=== PATIENT | female | born 1965 | race Caucasian/White ===

== ENCOUNTER 2016-05-28 23:48 | Observation (INO) | payer BC ==
--- NOTE | 2016-05-29 00:33 | ER Document Report ---
ED General - General Chief Complaint: Altered Mental Status Stated Complaint: CONFUSION Notes: Patient is a 51-year-old female presents with complaint of sudden onset of confusion. No focal weakness or numbness. Patient went to bed at 10 PM. She will woke up and was not acting appropriate. says she was staggering around the house. She is slurring her words. She's not making sense. She had a previous history of a TIA. She is not on blood thinning medications. She did take trazodone for sleep but she takes this every night does not have difficulty with it. She does not take any pain medications. The said she came off pain medications in August and has not had any since. He says there are no opiate medications in the house. She does not drink alcohol. She does not do drugs. No recent trauma. TRAVEL OUTSIDE OF THE [place] IN LAST 30 DAYS: No - Related Data Allergies/Adverse Reactions: amoxicillin [Amoxicillin] Allergy (Severe, Verified 06/19/14 16:17) Hives azithromycin [From Zithromax] Allergy (Severe, Verified 06/19/14 16:17) Anaphylaxis cephalexin monohydrate [From Keflex] Allergy (Severe, Verified 06/19/14 16:17) swelling clindamycin [Clindamycin] Allergy (Severe, Verified 06/19/14 16:17) Hives erythromycin base [Erythromycin Base] Allergy (Severe, Verified 06/19/14 16:17) Hives Penicillins Allergy (Severe, Verified 06/19/14 16:17) Hives Sulfa (Sulfonamide Antibiotics) Allergy (Severe, Verified 06/19/14 16:17) Hives vancomycin [Vancomycin] Allergy (Severe, Verified 06/19/14 16:17) Hives all mycins Allergy (Severe, Uncoded 06/19/14 16:17) Hives Past Medical History - Social History Smoking Status: Unknown if Ever Smoked Frequency of alcohol use: None Drug Abuse: None Family History: Reviewed & Not Pertinent Patient has suicidal ideation: No Patient has homicidal ideation: No - Past Medical History Cardiac Medical History: Reports: Hx Hypertension - on meds Denies: Hx Coronary Artery Disease, Hx Heart Attack Pulmonary Medical History: Denies: Hx Asthma, Hx Bronchitis, Hx COPD, Hx Pneumonia Neurological Medical History: Denies: Hx Seizures Endocrine Medical History: Denies: Hx Diabetes Mellitus Type 1, Hx Diabetes Mellitus Type 2, Hx Graves' Disease, Hx Hyperthyroidism, Hx Hypothyroidism Renal/ Medical History: Reports: Hx Kidney Stones. Denies: Hx Peritoneal Dialysis Musculoskeltal Medical History: Reports Hx Arthritis - Spinal Psychiatric Medical History: Reports: Hx Attention Deficit Hyperactivity Disorder Past Surgical History: Reports: Hx Cholecystectomy, Hx Genitourinary Surgery, Hx Hysterectomy, Hx Orthopedic Surgery - back x2 - Immunizations Immunizations up to date: Yes Hx Diphtheria, Pertussis, Tetanus Vaccination: Yes Review of Systems - Review of Systems Notes: My Normal Review Basic REVIEW OF SYSTEMS: CONSTITUTIONAL : Denies fever, chills, or sweats. Denies recent illness. EENT: Denies eye, ear, throat, or mouth pain or symptoms. Denies nasal or sinus congestion. CARDIOVASCULAR: Denies chest pain. RESPIRATORY: Denies cough, cold, or chest congestion. Denies shortness of breath, difficulty breathing, or wheezing. GASTROINTESTINAL: Denies abdominal pain. Denies nausea, vomiting, or diarrhea. Denies constipation. Last BM: : MUSCULOSKELETAL: Denies neck or back pain or joint pain or swelling. SKIN: Denies rash or skin lesions. HEMATOLOGIC : Denies easy bruising or bleeding. NEUROLOGICAL: Confusion. ALL OTHER SYSTEMS REVIEWED AND NEGATIVE. Physical Exam - Vital signs Vitals: Temp Pulse BP Pulse Ox 97.5 F 97 106/71 97 05/29/16 00:06 05/29/16 00:06 05/29/16 00:06 05/29/16 00:06 - Notes Notes: General Appearance: Well nourished, alert, patient is little bit sleepy appearing. She is arousable. When you talk to her she has slight slurring of her words. She's able answers most questions. She is able move all her extremities. She appears sedated.. Vitals: reviewed, See vital signs table. Head: no swelling or tenderness to the head Eyes: PERRL, EOMI, Conjuctiva clear Mouth: No decreasd moisture Neck: Supple, no neck tenderness, Lungs: No wheezing, No rales, No rhonci, No accessory muscle use, good air exchange bilaterally. Heart: Normal rate, Regular rythm, No murmur, no rub Abdomen: Normal BS, soft, No rigidity, No abdominal tenderness, No guarding, no rebound, no abdominal masses, no organomegaly Extremities: strength 5/5 in all extremities, good pulses in all extremities, no swelling or tenderness in the extremities, no edema. Skin: warm, dry, appropriate color, no rash Neuro: speech is sluggish, oriented x 2, somnolent affect, responds appropriately to questions. Cranial nerves II through XII are intact. Patient has no drift wouldn't hold her arms up against gravity. She has no drift in her legs when holding them up against gravity. She is good strength in all 4 extremities. Distal sensation intact. Course - Re-evaluation Re-evalutation: 05/29/16 00:40 Patient's is at bedside. She is within the window for TPA. The only symptom she has is confusion. She does not have any other strokelike symptoms. Her speech is more sluggish. I did talk to the at length. I did review the data for TPA with him. I informed him that approximately 33% of people will receive TPA would be improved to 6 months. Also informed him that 22% of people who do not receive the medication would be improved to 6 months. Also informed him that 6 to 7% of people will have some form of life- threatening bleeding if they received medication. Patient's is understanding of this. At this time does not want to go forth with TPA being that it is not clear-cut that she has a stroke and also the risk of bleeding. I do agree with him on this choice no think it's appropriate to not give TPA being at the exact cause of why she is confused is not clear and also the risk of bleeding with this medication. We'll continue the workup and continue to closely monitor the patient. 05/29/16 02:[address] scan is negative. Her laboratory evaluation is unremarkable. Her neurologic exam remains the same or she is sluggish with her speech and still somewhat appearing. She has no fevers. She has no leukocytosis. His nose signs of infection. Her drug screen is negative. This possibly this could be related to a stroke but still is not clear. I'm awaiting to speak with the hospitalist about possible admission and further workup which will probably include an MRI. 05/29/16 07:26 I did speak with the hospitalist who agrees to accept the patient for admission for further workup of her resolved altered mental status and slurred speech. The exact cause of this is really not clear. Patient is a history of TIA and this is definite possibility. She has no access to any type of drugs and denies doing drugs in the also denies for having asked drugs as well. She's actually Normal rep for going to bed and was with the at that time. Her drug screen is completely negative. She has no history of having altered mental status or any episodes similar to this in the past. At this time we will go forward with admitting the patient for further workup. Dictation of this chart was performed using voice recognition software; therefore, there may be some unintended grammatical errors. - Vital Signs Vital signs: Temp Pulse Resp BP Pulse Ox 97.5 F 90 19 95/72 L 95 05/29/16 00:06 05/29/16 00:34 05/29/16 05:01 05/29/16 05:01 05/29/16 05:01 - Laboratory Result Diagrams: 05/29/16 00:32 05/29/16 00:32 Laboratory results interpreted by me: 05/29/16 05/29/16 00:32 00:32 Sodium 145.5 H Chloride 112 H Salicylates < 1.0 L Acetaminophen < 10 L - EKG Interpretation by Me Additional EKG results interpreted by me: 05/29/16 00:26 EKG is reviewed and interpreted by me. EKG shows normal sinus rhythm with rate of 89 beats per minute. No ST segment elevation or depression. Small T-wave inversion in lead V3. DE interval, QRS duration, QTC levels are within normal range. Old EKG for comparison is from 06/15/2014. Discharge - Discharge Clinical Impression: Altered mental status Qualifiers: Altered mental status type: unspecified Qualified Code(s): R41.82 - Altered mental status, unspecified TIA (transient ischemic attack) Qualifiers: Transient cerebral ischemia type: unspecified Qualified Code(s): G45.9 - Transient cerebral ischemic attack, unspecified Condition: Stable Disposition: ADMITTED OBSERVATION Admitting Provider: Hospitalist Unit Admitted: Telemetry
[2016-05-29 00:42] LABS: ABSOLUTE EOSINOPHILS # (AUTO) 0.2 10^3/uL (0.0-0.6); ABSOLUTE LYMPHOCYTES (AUTO) 2.4 10^3/uL (0.5-4.7); ABSOLUTE MONOCYTES (AUTO) 0.5 10^3/uL (0.1-1.4); BASOPHILS % (AUTO) 0.5 % (0-2); EOSINOPHILS % (AUTO) 3.2 % (0-6); HEMATOCRIT 41.7 % (36.0-47.0); HEMOGLOBIN 13.9 g/dL (12.0-15.5); LYMPHOCYTES % (AUTO) 33.8 % (13-45); MEAN CORPUSCULAR HEMOGLOBIN 29.3 pg (27.0-33.4); MEAN CORPUSCULAR HGB CONC 33.4 g/dL (32.0-36.0); MEAN CORPUSCULAR VOLUME 88 fl (80-97); MONOCYTES % (AUTO) 7.1 % (3-13); RED BLOOD COUNT 4.75 10^6/uL (3.72-5.28); RED CELL DISTRIBUTION WIDTH 13.5 % (11.5-14.0); SEGMENTED NEUTROPHILS % (AUTO) 55.4 % (42-78); WHITE BLOOD COUNT 7.2 10^3/uL (4.0-10.5)
[2016-05-29 00:53] LABS: APPEARANCE,URINE CLEAR; BILIRUBIN,URINE NEGATIVE (NEGATIVE); GLUCOSE, URINE NEGATIVE (NEGATIVE); KETONES,URINE NEGATIVE (NEGATIVE); LEUKOCYTE ESTERASE,URINE NEGATIVE (NEGATIVE); NITRITE,URINE NEGATIVE (NEGATIVE); PROTEIN,URINE NEGATIVE (NEGATIVE); URINE SPECIFIC GRAVITY 1.014; UROBILINOGEN,URINE NEGATIVE mg/dL (<2.0)
[2016-05-29 00:53] LABS: PROTHROMBIN TIME 12.8 SEC (11.4-15.4)
[2016-05-29 00:54] LABS: PARTIAL THROMBOPLASTIN TIME 31.6 SEC (23.5-35.8)
[2016-05-29 01:01] LABS: ALANINE AMINOTRANSFERASE 34 U/L (9-52); ALBUMIN 4.5 g/dL (3.5-5.0); ALCOHOL < 10 mg/dL (NONE DETECTED); ALKALINE PHOSPHATASE 88 U/L (38-126); ANION GAP 12 (5-19); ASPARTATE AMINO TRANSFERASE 22 U/L (14-36); BILIRUBIN,TOTAL 0.5 mg/dL (0.2-1.3); BLOOD UREA NITROGEN 19 mg/dL (7-20); CALCIUM 9.6 mg/dL (8.4-10.2); CARBON DIOXIDE 22 mmol/L (22-30); CHLORIDE 112 mmol/L (98-107); CREATININE RESULT 0.82 mg/dL (0.52-1.25); GLUCOSE 103 mg/dL (75-110); POTASSIUM 3.8 mmol/L (3.6-5.0); SODIUM 145.5 mmol/L (137-145); TOTAL PROTEIN 7.2 g/dL (6.3-8.2)
[2016-05-29 01:16] LABS: URINE BARBITURATES SCREEN NEGATIVE; URINE METHADONE SCREEN NEGATIVE; URINE OPIATES LOW NEGATIVE; URINE PHENCYCLIDINE SCREEN NEGATIVE
[2016-05-29 01:35] LABS: VENOUS BLOOD BASE EXCESS -3.2 mmol/L; VENOUS BLOOD HCO3 21.4 mmol/L (20-32); VENOUS BLOOD PCO2 36.9 mmHg (35-63); VENOUS BLOOD PH 7.38 (7.30-7.42)
[2016-05-29] MEDS ORDERED: NORMAL SALINE 1000 ML 1,000 ML IV PRN (08:50)
--- NOTE | 2016-05-29 09:10 | PDOC H&P ---
History of Present Illness Admission Date/PCP: 05/29/16 07:44 PING SCHMIDT NP Patient complains of: Confusion. TIA like episode History of Present Illness: HERBERT ZUNIGA is a 51 year old female with complaint of sudden onset of confusion. No focal weakness or numbness. Patient went to bed at 10 PM. She will woke up and was not acting appropriate. says she was staggering around the house. She is slurring her words. She's not making sense. She had a previous history of a TIA. She is not on blood thinning medications. She did take trazodone for sleep but she takes this every night does not have difficulty with it. She does not take any pain medications. The said she came off pain medications in August and has not had any since. He says there are no opiate medications in the house. She does not drink alcohol. She does not do drugs. No recent trauma. Upon evaluation in the emergency room patient had a negative CAT scan Normal EKG and lab test She's had no significant neurological deficits Confusion improved with time, and she was oriented to time place and person when evaluated She was subsequently admitted under hospitalist service to telemetry unit for observation Past Medical History Cardiac Medical History: Reports: Hypertension - on meds Denies: Coronary Artery Disease, Myocardial Infarction Pulmonary Medical History: Denies: Asthma, Bronchitis, Chronic Obstructive Pulmonary Disease (COPD), Pneumonia Neurological Medical History: Denies: Seizures Endocrine Medical History: Denies: Diabetes Mellitus Type 1, Diabetes Mellitus Type 2, Hyperthyroidism, Hypothyroidism Musculoskeltal Medical History: Reports: Arthritis - Spinal Psychiatric Medical History: Reports: Attention Deficit Hyperactivity Disorder Hematology: Denies: Anemia Past Surgical History Past Surgical History: Reports: Cholecystectomy, Hysterectomy, Orthopedic Surgery - back x2 Social History Information Source: Patient Smoking Status: Former Smoker - He Frequency of Alcohol Use: None Hx Recreational Drug Use: No - Advance Directive Resuscitation Status: Full Code Surrogate healthcare decision maker:: Jeremiah Family History Family History: Reviewed & Not Pertinent Parental Family History Reviewed: Yes - Patient is adopted Children Family History Reviewed: Yes Sibling(s) Family History Reviewed.: Yes Medication/Allergy Allergies/Adverse Reactions: amoxicillin [Amoxicillin] Allergy (Severe, Verified 06/19/14 16:17) Hives azithromycin [From Zithromax] Allergy (Severe, Verified 06/19/14 16:17) Anaphylaxis cephalexin monohydrate [From Keflex] Allergy (Severe, Verified 06/19/14 16:17) swelling clindamycin [Clindamycin] Allergy (Severe, Verified 06/19/14 16:17) Hives erythromycin base [Erythromycin Base] Allergy (Severe, Verified 06/19/14 16:17) Hives Penicillins Allergy (Severe, Verified 06/19/14 16:17) Hives Sulfa (Sulfonamide Antibiotics) Allergy (Severe, Verified 06/19/14 16:17) Hives vancomycin [Vancomycin] Allergy (Severe, Verified 06/19/14 16:17) Hives all mycins Allergy (Severe, Uncoded 06/19/14 16:17) Hives Review of Systems Constitutional: ABSENT: chills, fever(s), headache(s), weight gain, weight loss Eyes: ABSENT: visual disturbances Ears: ABSENT: hearing changes Cardiovascular: ABSENT: chest pain, dyspnea on exertion, edema, orthropnea, palpitations Respiratory: ABSENT: cough, hemoptysis Gastrointestinal: PRESENT: abdominal pain, diarrhea. ABSENT: constipation, hematemesis, hematochezia, nausea, vomiting Genitourinary: ABSENT: dysuria, hematuria Musculoskeletal: ABSENT: joint swelling Integumentary: ABSENT: rash, wounds Neurological: PRESENT: confusion. ABSENT: abnormal gait, abnormal speech, dizziness, focal weakness, syncope Psychiatric: ABSENT: anxiety, depression, homidical ideation, suicidal ideation Endocrine: ABSENT: cold intolerance, heat intolerance, polydipsia, polyuria Hematologic/Lymphatic: ABSENT: easy bleeding, easy bruising Physical Exam Vital Signs: Temp Pulse Resp BP Pulse Ox 97.5 F 76 18 110/83 95 05/29/16 00:06 05/29/16 06:00 05/29/16 07:01 05/29/16 06:00 05/29/16 07:01 General appearance: PRESENT: no acute distress, well-developed, well-nourished Head exam: PRESENT: atraumatic, normocephalic Eye exam: PRESENT: conjunctiva pink, EOMI, PERRLA. ABSENT: scleral icterus Ear exam: PRESENT: normal external ear exam Mouth exam: PRESENT: moist, tongue midline Neck exam: ABSENT: carotid bruit, JVD, lymphadenopathy, thyromegaly Respiratory exam: PRESENT: clear to auscultation eva. ABSENT: rales, rhonchi, wheezes Cardiovascular exam: PRESENT: RRR. ABSENT: diastolic murmur, rubs, systolic murmur Pulses: PRESENT: normal dorsalis pedis pul Vascular exam: PRESENT: normal capillary refill GI/Abdominal exam: PRESENT: normal bowel sounds, soft. ABSENT: distended, guarding, mass, organolmegaly, rebound, tenderness Rectal exam: PRESENT: deferred Extremities exam: PRESENT: full ROM. ABSENT: calf tenderness, clubbing, pedal edema Neurological exam: PRESENT: alert, awake, oriented to person, oriented to place , oriented to time, oriented to situation, CN II-XII grossly intact. ABSENT: motor sensory deficit Psychiatric exam: PRESENT: appropriate affect, normal mood. ABSENT: homicidal ideation, suicidal ideation Skin exam: PRESENT: dry, intact, warm. ABSENT: cyanosis, rash Results Laboratory Results: Labs- All tests 24 hr 05/29/16 05/29/16 05/29/16 00:19 00:32 00:32 WBC 7.2 RBC 4.75 Hgb 13.9 Hct 41.7 MCV 88 MCH 29.3 MCHC 33.4 RDW 13.5 Plt Count 252 Seg Neutrophils % 55.4 Lymphocytes % 33.8 Monocytes % 7.1 Eosinophils % 3.2 Basophils % 0.5 Absolute Neutrophils 4.0 Absolute Lymphocytes 2.4 Absolute Monocytes 0.5 Absolute Eosinophils 0.2 Absolute Basophils 0.0 PT INR APTT VBG pH VBG pCO2 VBG HCO3 VBG Base Excess Sodium 145.5 H Potassium 3.8 Chloride 112 H Carbon Dioxide 22 Anion Gap 12 BUN 19 Creatinine 0.82 Est GFR ( Amer) > 60 Est GFR (Non-Af Amer) > 60 Glucose 103 POC Glucose 102 Calcium 9.6 Magnesium 2.0 Total Bilirubin 0.5 Direct Bilirubin 0.0 AST 22 ALT 34 Alkaline Phosphatase 88 Ammonia Total Protein 7.2 Albumin 4.5 Urine Color Urine Appearance Urine pH Ur Specific [place] Urine Protein Urine Glucose (UA) Urine Ketones Urine Blood Urine Nitrite Urine Bilirubin Urine Urobilinogen Ur Leukocyte Esterase Urine WBC (Auto) Urine RBC (Auto) Squamous Epi Cells Auto Urine Ascorbic Acid Salicylates Urine Opiates Screen Urine Methadone Screen Acetaminophen Ur Barbiturates Screen Ur Phencyclidine Scrn Ur Amphetamines Screen U Benzodiazepines Scrn Urine Cocaine Screen U Marijuana (THC) Screen Serum Alcohol < 10 05/29/16 05/29/16 05/29/16 00:32 00:32 00:40 WBC RBC Hgb Hct MCV MCH MCHC RDW Plt Count Seg Neutrophils % Lymphocytes % Monocytes % Eosinophils % Basophils % Absolute Neutrophils Absolute Lymphocytes Absolute Monocytes Absolute Eosinophils Absolute Basophils PT 12.8 INR 0.94 APTT 31.6 VBG pH VBG pCO2 VBG HCO3 VBG Base Excess Sodium Potassium Chloride Carbon Dioxide Anion Gap BUN Creatinine Est GFR ( Amer) Est GFR (Non-Af Amer) Glucose POC Glucose Calcium Magnesium Total Bilirubin Direct Bilirubin AST ALT Alkaline Phosphatase Ammonia Total Protein Albumin Urine Color YELLOW Urine Appearance CLEAR Urine pH 5.0 Ur Specific [place] 1.014 Urine Protein NEGATIVE Urine Glucose (UA) NEGATIVE Urine Ketones NEGATIVE Urine Blood NEGATIVE Urine Nitrite NEGATIVE Urine Bilirubin NEGATIVE Urine Urobilinogen NEGATIVE Ur Leukocyte Esterase NEGATIVE Urine WBC (Auto) 1 Urine RBC (Auto) 1 Squamous Epi Cells Auto <1 Urine Ascorbic Acid NEGATIVE Salicylates < 1.0 L Urine Opiates Screen Urine Methadone Screen Acetaminophen < 10 L Ur Barbiturates Screen Ur Phencyclidine Scrn Ur Amphetamines Screen U Benzodiazepines Scrn Urine Cocaine Screen U Marijuana (THC) Screen Serum Alcohol 05/29/16 05/29/16 05/29/16 00:40 01:21 01:21 WBC RBC Hgb Hct MCV MCH MCHC RDW Plt Count Seg Neutrophils % Lymphocytes % Monocytes % Eosinophils % Basophils % Absolute Neutrophils Absolute Lymphocytes Absolute Monocytes Absolute Eosinophils Absolute Basophils PT INR APTT VBG pH 7.38 VBG pCO2 36.9 VBG HCO3 21.4 VBG Base Excess -3.2 Sodium Potassium Chloride Carbon Dioxide Anion Gap BUN Creatinine Est GFR ( Amer) Est GFR (Non-Af Amer) Glucose POC Glucose Calcium Magnesium Total Bilirubin Direct Bilirubin AST ALT Alkaline Phosphatase Ammonia 12.1 Total Protein Albumin Urine Color Urine Appearance Urine pH Ur Specific [place] Urine Protein Urine Glucose (UA) Urine Ketones Urine Blood Urine Nitrite Urine Bilirubin Urine Urobilinogen Ur Leukocyte Esterase Urine WBC (Auto) Urine RBC (Auto) Squamous Epi Cells Auto Urine Ascorbic Acid Salicylates Urine Opiates Screen NEGATIVE Urine Methadone Screen NEGATIVE Acetaminophen Ur Barbiturates Screen NEGATIVE Ur Phencyclidine Scrn NEGATIVE Ur Amphetamines Screen UNCONFIRMED POSITIVE U Benzodiazepines Scrn NEGATIVE Urine Cocaine Screen NEGATIVE U Marijuana (THC) Screen NEGATIVE Serum Alcohol Impressions: Head CT 05/29/16 00:00 IMPRESSION: No acute findings. Chest X-Ray 05/29/16 00:39 IMPRESSION: NO ACUTE RADIOGRAPHIC FINDING IN THE CHEST. Assessment & Plan - Diagnosis (1) Encephalopathy acute Is this a current diagnosis for this admission?: YesPlan: Is improving Patient likely has metabolic encephalopathy ; she may have had a seizure She does not appear to have any signs of infection She had had intermittent abdominal pain and diarrhea Cause of the encephalopathy at this time is unknown (2) Abdominal pain Is this a current diagnosis for this admission?: YesPlan: We will schedule the patient for CT abdomen and pelvis in a.m. Her physical examination is benign she does not appear to have suffered any acute surgical issues (3) Diarrhea Is this a current diagnosis for this admission?: YesPlan: Order stools for occult for culture and C. difficile Patient may have irritable bowel syndrome (4) TIA (transient ischemic attack) Qualifiers: Transient cerebral ischemia type: unspecified Qualified Code(s): G45.9 - Transient cerebral ischemic attack, unspecified Is this a current diagnosis for this admission?: YesPlan: With transient confusion Workup in progress Patient was admitted to telemetry unit - Time Time Spent with patient: Admit to telemetry for observation Time Spent: 50 to 70 Minutes
[2016-05-29] MEDS: ASPIRIN 325 MG TABLET, ENT COATED PO SCH (10:50)
[2016-05-29] MEDS ORDERED: FAMOTIDINE INJ/PF 20 MG/2 ML SDV IV ONE (12:00)
[2016-05-29] MEDS ORDERED: ENOXAPARIN SODIUM INJ 40 MG/0.4 ML DISP.SYRIN SUBCUT ONE (12:30)
[2016-05-29] MEDS ORDERED: LORAZEPAM INJ 2 MG/1 ML VIAL IV ONE (14:30)
--- NOTE | 2016-05-29 17:16 | EKG REPORT ---
SEVERITY:- BORDERLINE ECG - SINUS RHYTHM PROBABLE LEFT ATRIAL ABNORMALITY BORDERLINE T ABNORMALITIES, ANTERIOR LEADS : Confirmed by: Nieves Anglin MD 29-May-2016 17:15:38
[2016-05-29] MEDS ORDERED: INFLUENZA ADLT QUAD (36MOS+) 2016-17 VAC 0.5 ML SYR IM PRN (19:46)
[2016-05-29] MEDS: FAMOTIDINE INJ/PF 20 MG/2 ML SDV IV SCH (21:10)
[2016-05-29] MEDS ORDERED: ATORVASTATIN CALCIUM 40 MG TABLET PO SCH (22:00)
--- NOTE | 2016-05-30 07:55 | EKG REPORT ---
SEVERITY:- NORMAL ECG - SINUS RHYTHM : Confirmed by: Nieves Anglin MD 30-May-2016 07:54:26
[2016-05-30] MEDS ORDERED: ENOXAPARIN SODIUM INJ 40 MG/0.4 ML DISP.SYRIN SUBCUT SCH (08:00)
[2016-05-30] MEDS: FAMOTIDINE INJ/PF 20 MG/2 ML SDV IV SCH (09:43)
[2016-05-30] MEDS: ASPIRIN 325 MG TABLET, ENT COATED PO SCH (09:43)
[2016-05-30 14:11] VITALS: BP 114/69
--- NOTE | 2016-06-01 10:26 | EEG PRO FEE REPORT ---
EEG INTERPRETATION PATIENT NAME: HERBERT ZUNIGA ROOM#: 316 ORDER#: [id number] DATE OF STUDY: 05/29/2016 : 1965 REFERRING MD: Jacqueline Wright MD DIAGNOSIS: Seizures, confusion, possible TIA MEDICATIONS: Not listed REPORT The background activity of tracing is 8-9 cycles per second. Well formed and reactive alpha best seen in the posterior electrodes with beta 18-22 cycles per second, intermittent, nonlocalized or sustained slower forms seen. Photic stimulation did not alter the tracing significantly. In the early stages of sleep, more generalized slowing is seen. IMPRESSION This EEG is within normal limits. INTERPRETING PHYSICIAN: DOROTHY JONES M.D. /: [id number] TT: 1005 ID: [id number] /: [id number] TD: [id number] JOB: [id number] cc:DOROTHY JONES M.D. >
--- NOTE | 2016-06-01 13:30 | PDOC DISCHARGE SUMMARY ---
General - Admit/Disc Date/PCP Admission Date/Primary Care Provider: 05/29/16 08:51 PING SCHMIDT NP Discharge Date: 05/30/16 - Discharge Diagnosis (1) Encephalopathy acute Is this a current diagnosis for this admission?: Yes (2) Abdominal pain Is this a current diagnosis for this admission?: Yes (3) Diarrhea Is this a current diagnosis for this admission?: Yes (4) TIA (transient ischemic attack) Is this a current diagnosis for this admission?: Yes - Additional Information Resuscitation Status: Full Code Discharge Diet: As Tolerated Discharge Activity: Activity As Tolerated Home Medications: Dextroamphetamine Sulfate [Dextrostat] 20 mg PO BID 05/29/16 Duloxetine HCl 30 mg PO BID 05/29/16 Trazodone HCl [Desyrel 50 mg Tablet] 50 mg PO QHS 05/29/16 Atenolol [Tenormin 50 mg Tablet] 50 mg PO DAILY #30 05/30/16 Topiramate [Topamax 100 mg Tablet] 200 mg PO BID #0 05/30/16 History of Present Illness Patient complains of: confusion History of Present Illness: HERBERT ZUNIGA is a 51 year old female with complaint of sudden onset of confusion. No focal weakness or numbness. Patient went to bed at 10 PM. She will woke up and was not acting appropriate. says she was staggering around the house. She is slurring her words. She's not making sense. She had a previous history of a TIA. She is not on blood thinning medications. She did take trazodone for sleep but she takes this every night does not have difficulty with it. She does not take any pain medications. The said she came off pain medications in August and has not had any since. He says there are no opiate medications in the house. She does not drink alcohol. She does not do drugs. No recent trauma. Upon evaluation in the emergency room patient had a negative CAT scan Normal EKG and lab test She's had no significant neurological deficits Confusion improved with time, and she was oriented to time place and person when evaluated She was subsequently admitted under hospitalist service to telemetry unit for observation Hospital Course Hospital Course: Patient was admitted with TIA like symptoms Confusion resolved in less than 24 hours Extensive workup including Brain MRI, EEG , carotid ultrasound were normal Etiology of transient encephalopathy unclear ? could it be related to medications prescribed We advised patient to decrease Topamax to 200 mg twice a day and follow up with primary care physician Physical Exam Vital Signs: Temp Pulse Resp BP Pulse Ox 98.3 F 76 16 114/69 99 05/30/16 14:07 05/30/16 14:07 05/30/16 14:07 05/30/16 14:07 05/30/16 14:07 Intake & Output 05/31/16 06/01/16 06/02/16 00:59 00:59 00:59 Intake Total 1176 Balance 1176 Weight 85.8 kg General appearance: PRESENT: no acute distress, well-developed, well-nourished Head exam: PRESENT: atraumatic, normocephalic Eye exam: PRESENT: conjunctiva pink, EOMI, PERRLA. ABSENT: scleral icterus Ear exam: PRESENT: normal external ear exam Mouth exam: PRESENT: moist, tongue midline Neck exam: ABSENT: carotid bruit, JVD, lymphadenopathy, thyromegaly Respiratory exam: PRESENT: clear to auscultation eva. ABSENT: rales, rhonchi, wheezes Cardiovascular exam: PRESENT: RRR. ABSENT: diastolic murmur, rubs, systolic murmur Pulses: PRESENT: normal dorsalis pedis pul Vascular exam: PRESENT: normal capillary refill GI/Abdominal exam: PRESENT: normal bowel sounds, soft. ABSENT: distended, guarding, mass, organolmegaly, rebound, tenderness Rectal exam: PRESENT: deferred Extremities exam: PRESENT: full ROM. ABSENT: calf tenderness, clubbing, pedal edema Neurological exam: PRESENT: alert, awake, oriented to person, oriented to place , oriented to time, oriented to situation, CN II-XII grossly intact. ABSENT: motor sensory deficit Psychiatric exam: PRESENT: appropriate affect, normal mood. ABSENT: homicidal ideation, suicidal ideation Skin exam: PRESENT: dry, intact, warm. ABSENT: cyanosis, rash Results Laboratory Results: 05/29/16 05/29/16 05/29/16 09:19 16:20 22:25 Troponin I < 0.012 < 0.012 < 0.012 05/29/16 00:32 05/29/16 00:32 MCV 88 fl (80-97) 05/29/16 00:32 MCH 29.3 pg (27.0-33.4) 05/29/16 00:32 MCHC 33.4 g/dL (32.0-36.0) 05/29/16 00:32 RDW 13.5 % (11.5-14.0) 05/29/16 00:32 Seg Neutrophils % 55.4 % (42-78) 05/29/16 00:32 Lymphocytes % 33.8 % (13-45) 05/29/16 00:32 Monocytes % 7.1 % (3-13) 05/29/16 00:32 Eosinophils % 3.2 % (0-6) 05/29/16 00:32 Basophils % 0.5 % (0-2) 05/29/16 00:32 Absolute Neutrophils 4.0 10^3/uL (1.7-8.2) 05/29/16 00:32 Absolute Lymphocytes 2.4 10^3/uL (0.5-4.7) 05/29/16 00:32 Absolute Monocytes 0.5 10^3/uL (0.1-1.4) 05/29/16 00:32 Absolute Eosinophils 0.2 10^3/uL (0.0-0.6) 05/29/16 00:32 Absolute Basophils 0.0 10^3/uL (0.0-0.2) 05/29/16 00:32 VBG pH 7.38 (7.30-7.42) 05/29/16 01:21 VBG pCO2 36.9 mmHg (35-63) 05/29/16 01:21 VBG HCO3 21.4 mmol/L (20-32) 05/29/16 01:21 VBG Base Excess -3.2 mmol/L 05/29/16 01:21 Chloride 112 mmol/L (98-107) H 05/29/16 00:32 Carbon Dioxide 22 mmol/L (22-30) 05/29/16 00:32 Anion Gap 12 (5-19) 05/29/16 00:32 Est GFR ( Amer) > 60 (>60) 05/29/16 00:32 Est GFR (Non-Af Amer) > 60 (>60) 05/29/16 00:32 Glucose 103 mg/dL (75-110) 05/29/16 00:32 Calcium 9.6 mg/dL (8.4-10.2) 05/29/16 00:32 Magnesium 2.0 mg/dL (1.6-2.3) 05/29/16 00:32 Total Bilirubin 0.5 mg/dL (0.2-1.3) 05/29/16 00:32 AST 22 U/L (14-36) 05/29/16 00:32 ALT 34 U/L (9-52) 05/29/16 00:32 Alkaline Phosphatase 88 U/L (38-126) 05/29/16 00:32 Ammonia 12.1 umol/L (9-33) 05/29/16 01:21 Total Protein 7.2 g/dL (6.3-8.2) 05/29/16 00:32 Albumin 4.5 g/dL (3.5-5.0) 05/29/16 00:32 Urine Color YELLOW 05/29/16 00:40 Urine Appearance CLEAR 05/29/16 00:40 Urine pH 5.0 (5.0-9.0) 05/29/16 00:40 Ur Specific [place] 1.014 05/29/16 00:40 Urine Protein NEGATIVE mg/dL (NEGATIVE) 05/29/16 00:40 Urine Glucose (UA) NEGATIVE mg/dL (NEGATIVE) 05/29/16 00:40 Urine Ketones NEGATIVE mg/dL (NEGATIVE) 05/29/16 00:40 Urine Blood NEGATIVE (NEGATIVE) 05/29/16 00:40 Urine Nitrite NEGATIVE (NEGATIVE) 05/29/16 00:40 Ur Leukocyte Esterase NEGATIVE (NEGATIVE) 05/29/16 00:40 Urine WBC (Auto) 1 /HPF 05/29/16 00:40 Urine RBC (Auto) 1 /HPF 05/29/16 00:40 05/29/16 05/29/16 05/29/16 09:19 16:20 22:25 Troponin I < 0.012 < 0.012 < 0.012 EKG Comments: SINUS RHYTHM Impressions: Head CT 05/29/16 00:00 IMPRESSION: No acute findings. Chest X-Ray 05/29/16 00:39 IMPRESSION: NO ACUTE RADIOGRAPHIC FINDING IN THE CHEST. Head MRI 05/29/16 08:53 IMPRESSION: Normal brain. Carotid Doppler Study 05/29/16 08:54 IMPRESSION: NO HEMODYNAMICALLY SIGNIFICANT STENOSIS. Plan Discharge Plan: discharged home at time of discharge she is alert awake no residual confusion
== END 2016-05-30 14:42 | disposition home or self-care (01) ==
LOC: ER 23:48 → EH 05-29 07:44 → UNDOADMOB 05-29 07:44 → EH 05-29 08:51 → 3W 05-29 11:03
PROVIDERS: ADMIT Emergency Medicine; ATTEND Emergency Medicine
DX: G93.40 Encephalopathy, unspecified (principal); R10.9 Unspecified abdominal pain; R19.7 Diarrhea, unspecified; G45.9 Transient cerebral ischemic attack, unspecified; I10 Essential (primary) hypertension; F90.9 Attention-deficit hyperactivity disorder, unspecified type; Z87.891 Personal history of nicotine dependence; R41.82 Altered mental status, unspecified
CPT/HCPCS: 95819; 93005 ×2; 99285; 36415; 82962; 80307 ×4; 82140; 83735; 85025; 85610; 85730; 80053; 81001; 84484; 82803; 93306; 93880; 70551; 71010; 70450; 90686; 93010 ×2; 97162; 97166; G0378 ×2; J1650 ×2; J2060; J3490 ×2; J7030; S0028 ×2

== ENCOUNTER → 2018-04-30 | Outpatient (CLI) | payer BC ==
--- NOTE | 2018-04-30 11:53 | WOMENS IMAGING REPORT ---
EXAM DESCRIPTION: 3D SCREENING MAMMO BILAT COMPLETED DATE/TIME: 04/30/2018 11:30 am REASON FOR STUDY: Z12.31 SCREENING MAMMO Z12.31 ENCNTR SCREEN MAMMOGRAM FOR MALIGNANT NEOPLASM OF B RE COMPARISON: 2014 TECHNIQUE: Standard craniocaudal and mediolateral oblique views of each breast recorded using digita l acquisition and breast tomosynthesis. LIMITATIONS: None. FINDINGS: No masses, calcifications or architectural distortion. No areas of suspicion. Read with the assistance of CAD. .[facility] - R2 [employer] Version 1.3 .[facility] Imaging - R2 Cenova Version 2.1 .[facility] Imaging - R2 Cenova Version 2.4 .[facility] - R2 Cenova Version 2.4 .[facility] - R2 Extractor Plant Operator Version 9.2 IMPRESSION: NORMAL MAMMOGRAM. BIRADS 1. BREAST DENSITY: b. There are scattered areas of fibroglandular density. BIRAD: 1 NEGATIVE RECOMMENDATION: ROUTINE SCREENING COMMENT: The patient has been notified of the results by letter per MQSA requirements. Additional no tification policies are in place for contacting patient with suspicious or incomplete findings. Quality ID #[id number]: The [employer] recommends an annual screening mammogram for women aged 40 years or over. This facility utilizes a reminder system to ensure that all patients receive reminder letters, and/or direct phone calls for appointments. This includes reminders for routine scr eening mammograms, diagnostic mammograms, or other Breast Imaging Interventions when appropriate. Th is patient will be placed in the appropriate reminder system. The [employer] (ACR) has developed recommendations for screening MRI of the breast s in certain patient populations, to be used in conjunction with mammography. Breast MRI surveillanc e may be appropriate for women with more than 20% lifetime risk of developing breast cancer as deter mined by genetic testing, significant family history of the disease, or history of mantle radiation f or Hodgkins Disease. ACR Practice Guidelines 2008. DBT Technology DBT is a type of tomographic mammography. With conventional mammography, overlapping breast tissue ma y make lesions difficult to detect, even with good compression. DBT uses an x-ray tube that rotates a round the breast, taking images at different angles. These images are then combined to create thin sl ices of the breast that the radiologist can view as a 3D reconstruction. The [employer] unit can perform full-field digital mammograms (2D imaging); or DBT (3D imaging); or both, in a combination mode that quickly performs both the mammogram and the tomosynthesis scan while the breast is still compressed. PQRS 6045F: Fluoroscopic imaging is not utilized for breast tomosynthesis. TECHNICAL DOCUMENTATION: FINDING NUMBER: (1) ASSESSMENT: (1) JOB ID: [id number] [employer]- All Rights Reserved Reading location - IP/workstation name: [email or web address]
== END ==
LOC: WI 11:26
PROVIDERS: ATTEND Specialist
DX: Z12.31 Encounter for screening mammogram for malignant neoplasm of breast (principal)
CPT/HCPCS: 77063; 77067

== ENCOUNTER → 2018-04-30 | Outpatient (CLI) | payer BC ==
[2018-04-30 11:47] LABS: ABSOLUTE BASOPHILS # (AUTO) 0.1 10^3/uL (0.0-0.2); ABSOLUTE EOSINOPHILS # (AUTO) 0.2 10^3/uL (0.0-0.6); ABSOLUTE LYMPHOCYTES (AUTO) 1.9 10^3/uL (0.5-4.7); ABSOLUTE MONOCYTES (AUTO) 0.3 10^3/uL (0.1-1.4); ABSOLUTE NEUT (AUTO) 3.7 10^3/uL (1.7-8.2); BASOPHILS % (AUTO) 0.8 % (0-2); EOSINOPHILS % (AUTO) 3.3 % (0-6); HEMATOCRIT 40.9 % (36.0-47.0); LYMPHOCYTES % (AUTO) 30.4 % (13-45); MEAN CORPUSCULAR HEMOGLOBIN 29.9 pg (27.0-33.4); MEAN CORPUSCULAR HGB CONC 34.2 g/dL (32.0-36.0); MEAN CORPUSCULAR VOLUME 87 fl (80-97); MONOCYTES % (AUTO) 5.6 % (3-13); PLATELET COUNT 260 10^3/uL (150-450); RED BLOOD COUNT 4.68 10^6/uL (3.72-5.28); RED CELL DISTRIBUTION WIDTH 13.5 % (11.5-14.0); SEGMENTED NEUTROPHILS % (AUTO) 59.9 % (42-78); TOTAL CELLS COUNTED % (AUTO) 100 %; WHITE BLOOD COUNT 6.2 10^3/uL (4.0-10.5)
[2018-04-30 12:15] LABS: ALANINE AMINOTRANSFERASE 35 U/L (9-52); ALBUMIN 4.7 g/dL (3.5-5.0); ALKALINE PHOSPHATASE 105 U/L (38-126); ANION GAP 11 (5-19); ASPARTATE AMINO TRANSFERASE 23 U/L (14-36); BILIRUBIN,DIRECT 0.3 mg/dL (0.0-0.4); BILIRUBIN,TOTAL 0.6 mg/dL (0.2-1.3); BLOOD UREA NITROGEN 18 mg/dL (7-20); CALCIUM 9.7 mg/dL (8.4-10.2); CARBON DIOXIDE 23 mmol/L (22-30); CHLORIDE 109 mmol/L (98-107); CHOLESTEROL 232.53 mg/dL (0-200); GLUCOSE 93 mg/dL (75-110); HOMOCYSTEINE 12.2 umol/L (4.7-12.6); IRON(TIBC) 153.6 ug/dL (37-170); POTASSIUM 4.1 mmol/L (3.6-5.0); SODIUM 143.2 mmol/L (137-145); TOTAL PROTEIN 7.3 g/dL (6.3-8.2); TRIGLYCERIDES 131 mg/dL (<150)
[2018-04-30 12:24] LABS: ERYTHROCYTE SEDIMENTATION RATE 15 mm/hr (0-30)
[2018-04-30 12:26] LABS: DIRECT LDL 135 mg/dL (<100)
[2018-04-30 12:31] LABS: FREE T3 3.21 pg/mL (2.77-5.27); FREE T4 (FREE THYROXINE) 0.78 ng/dL (0.78-2.19)
[2018-04-30 12:45] LABS: THYROID STIMULATING HORMONE 1.2 uIU/mL (0.47-4.68)
[2018-04-30 13:24] LABS: FOLATE > 20.00 ng/mL (>2.76)
[2018-05-01 09:50] LABS: CERULOPLASMIN 27.1 mg/dL (19.0-39.0)
[2018-05-01 12:51] LABS: THYROGLOBULIN AB < 0.9 IU/mL (<4.0)
[2018-05-02 02:46] LABS: TESTOSTERONE FREE (DIRECT) 0.8 pg/mL (0.0-4.2)
[2018-05-02 07:41] LABS: MAGNESIUM RBC 5.7 mg/dL (4.2-6.8); ZINC PLASMA OR SERUM 83 ug/dL (56-134)
[2018-05-02 20:36] LABS: VITAMIN B6 10.4 ug/L (2.0-32.8)
[2018-05-03 16:03] LABS: REVERSE T3 13.2 ng/dL (9.2-24.1); VITAMIN B1 (THIAMINE) 136.1 nmol/L (66.5-200.0)
[2018-05-05 14:51] LABS: PREGNENOLONE < 10 ng/dL (.)
== END ==
LOC: OD 09:34
PROVIDERS: ATTEND Clinical Neuropsychologist
DX: I10 Essential (primary) hypertension (principal); F90.8 Attention-deficit hyperactivity disorder, other type; G89.29 Other chronic pain; M51.37 Other intervertebral disc degeneration, lumbosacral region; F15.980 Other stimulant use, unspecified with stimulant-induced anxiety disorder; F33.0 Major depressive disorder, recurrent, mild; R10.9 Unspecified abdominal pain; R53.82 Chronic fatigue, unspecified
CPT/HCPCS: 36415; 80053; 80061; 82306; 82390; 82525; 82607; 82626; 82670; 82728; 82746; 83036; 83090; 83525; 83540; 83550; 83735; 84140; 84144; 84207; 84402; 84403; 84425; 84439; 84443; 84481; 84482; 84630; 85025; 85652; 86038; 86141; 86376; 86800

== ENCOUNTER → 2019-05-04 | Outpatient (CLI) | payer BC ==
--- NOTE | 2019-05-04 16:48 | WOMENS IMAGING REPORT ---
EXAM DESCRIPTION: 3D SCREENING MAMMO BILAT COMPLETED DATE/TIME: 05/04/2019 7:51 am REASON FOR STUDY: Z12.31 SCREENING MAMMO Z12.31 ENCNTR SCREEN MAMMOGRAM FOR MALIGNANT NEOPLASM OF B RE COMPARISON: 04/30/2018, 01/27/2015 EXAM PARAMETERS: Views: Standard craniocaudal and mediolateral oblique views of each breast recorded using digital acquisition and breast tomosynthesis. Read with the assistance of CAD. .[facility] - [employer] Child [employer] Manager Version 9.2 LIMITATIONS: None. FINDINGS: No suspicious masses, suspicious calcifications or architectural distortion. No areas of c oncern. IMPRESSION: NEGATIVE MAMMOGRAM. BIRADS 1. BREAST DENSITY: b. There are scattered areas of fibroglandular density. BIRAD: ASSESSMENT: 1 NEGATIVE RECOMMENDATION: ROUTINE SCREENING COMMENT: The patient has been notified of the results by letter per MQSA requirements. Additional no tification policies are in place for contacting patient with suspicious or incomplete findings. Quality ID #[id number]: The [employer] recommends an annual screening mammogram for women aged 40 years or over. This facility utilizes a reminder system to ensure that all patients receive reminder letters, and/or direct phone calls for appointments. This includes reminders for routine scr eening mammograms, diagnostic mammograms, or other Breast Imaging Interventions when appropriate. Th is patient will be placed in the appropriate reminder system. TECHNICAL DOCUMENTATION: FINDING NUMBER: (1) ASSESSMENT: (1) JOB ID: [id number] 2010 [employer]- All Rights Reserved Reading location - IP/workstation name: [email or web address]
== END ==
LOC: WI 08:30
PROVIDERS: ATTEND Specialist
DX: Z12.31 Encounter for screening mammogram for malignant neoplasm of breast (principal)
CPT/HCPCS: 77063; 77067